=== PATIENT | female | born 1990 | race African-American/Black ===

== ENCOUNTER 2018-10-14 17:32 | Emergency (ER) | payer OTHER ==
[~2018-10-14] VITALS: Ht 170.2 cm; Wt 107.0 kg
[2018-10-14 17:43] VITALS: BP 146/93
== END 2018-10-14 22:40 | disposition left against medical advice (07) ==
LOC: ER 17:32
DX: R51 Headache (principal); Z53.21 Procedure and treatment not carried out due to patient leaving prior to being seen by health care provider